=== PATIENT | female | born 2005 | race Caucasian/White ===

== ENCOUNTER 2025-01-07 08:10 | Emergency (ER) | payer OTHER ==
[~2025-01-07] VITALS: Ht 160 cm; Wt 72.6 kg
[2025-01-07 09:04] VITALS: BP 140/76; TEMP 97.7; O2SAT 99
== END 2025-01-07 09:04 | disposition home or self-care (01) ==
LOC: ER 08:10
DX: S46.911A Strain of unspecified muscle, fascia and tendon at shoulder and upper arm level, right arm, initial encounter (principal); X58.XXXA Exposure to other specified factors, initial encounter; Y93.89 Activity, other specified; Y92.89 Other specified places as the place of occurrence of the external cause; Y99.8 Other external cause status
CPT/HCPCS: 73020; A4606; A4663